=== PATIENT | male | born 1950 | race Caucasian/White ===

== ENCOUNTER 2017-09-12 07:44 | Outpatient (CLI) | payer OTHER ==
[~2017-09-12 07:44] MED LIST: CATAFLAM50 MG; CATAFLAM50 MG PO; COZAAR100 MG; METFORMIN HCL500 MG; NORVASC10 MG; ORPH100T; ORPH100T PO; ZETIA10 MG; ZITHROMAX TRI-500 MG PO; ZOCOR40 MG
== END 2017-09-12 07:47 | disposition home or self-care (01) ==
LOC: NUCLEAR 07:44
DX: I11.9 Hypertensive heart disease without heart failure (principal); R07.89 Other chest pain; E11.9 Type 2 diabetes mellitus without complications; I25.10 Atherosclerotic heart disease of native coronary artery without angina pectoris
CPT/HCPCS: 78452; 93017; A9500; J0153

== ENCOUNTER 2018-07-22 10:50 | Emergency (ER) | payer OTHER ==
[~2018-07-22] VITALS: Ht 182.9 cm; Wt 88.5 kg
== END 2018-07-22 14:17 | disposition home or self-care (01) ==
LOC: ER 10:50
DX: R42 Dizziness and giddiness (principal); M54.2 Cervicalgia; F06.4 Anxiety disorder due to known physiological condition

== ENCOUNTER 2018-11-03 07:23 | Outpatient (CLI) | payer OTHER | END 2018-11-03 07:25 | disposition home or self-care (01) | LOC: SONOGRAMA 07:23 → MAMO-SONO 07:45 | DX: K28.1 Acute gastrojejunal ulcer with perforation (principal) ==

== ENCOUNTER 2018-11-09 17:26 | Emergency (ER) | payer OTHER ==
[~2018-11-09] VITALS: Ht 172.7 cm; Wt 91.2 kg
== END 2018-11-09 21:45 | disposition home or self-care (01) ==
LOC: ER 17:26
DX: R07.89 Other chest pain (principal); F41.8 Other specified anxiety disorders

== ENCOUNTER 2019-03-27 09:22 | Emergency (ER) | payer OTHER ==
[~2019-03-27] VITALS: Ht 172.7 cm; Wt 94.3 kg
[2019-03-27] MEDS ORDERED: FISH OIL CONC1000 MG (09:43)
[2019-03-27] MEDS ORDERED: ZOLOFT50 MG (09:43)
[2019-03-27] MEDS ORDERED: XANAX0.25 MG (09:43)
== END 2019-03-27 18:36 | disposition home or self-care (01) ==
LOC: ER 09:22
DX: R42 Dizziness and giddiness (principal); T43.225A Adverse effect of selective serotonin reuptake inhibitors, initial encounter; Y92.89 Other specified places as the place of occurrence of the external cause

== ENCOUNTER 2019-05-18 08:18 | Emergency (ER) | payer OTHER ==
[~2019-05-18] VITALS: Ht 172.7 cm; Wt 95.3 kg
[~2019-05-18 08:18] MED LIST changes: +FISH OIL CONC1000 MG; +XANAX0.25 MG; +ZOLOFT50 MG
== END 2019-05-18 15:52 | disposition home or self-care (01) ==
LOC: ER 08:18 → CPU-OBS 09:02 → ER 09:02
DX: M94.0 Chondrocostal junction syndrome [Tietze] (principal); I16.0 Hypertensive urgency; I10 Essential (primary) hypertension; R07.89 Other chest pain; R42 Dizziness and giddiness; F40.01 Agoraphobia with panic disorder

== ENCOUNTER 2020-09-27 13:05 | Emergency (ER) | payer OTHER ==
[~2020-09-27] VITALS: Ht 175.3 cm; Wt 103.0 kg
[2020-09-27] MEDS ORDERED: BUPROPION HCL200 M1 (13:14)
[2020-09-27] MEDS ORDERED: LIPITOR40 M1 (13:15)
[2020-09-27] MEDS ORDERED: ZITHROMAX500 MG PO (16:30)
[2020-09-27] MEDS ORDERED: TUSSI PRES-B L480 ML PO (16:30)
[2020-09-27] MEDS ORDERED: TESSALON PERLE100 M1 PO (16:30)
== END 2020-09-27 16:42 | disposition home or self-care (01) ==
LOC: ER 13:05
DX: B34.9 Viral infection, unspecified (principal); R05 Cough; Z03.818 Encounter for observation for suspected exposure to other biological agents ruled out

== ENCOUNTER → 2020-12-07 11:07 | Outpatient (CLI) | payer OTHER ==
[~2020-12-07 11:07] MED LIST changes: +BUPROPION HCL200 M1; +LIPITOR40 M1; +TESSALON PERLE100 M1 PO; +TUSSI PRES-B L480 ML PO; +ZITHROMAX500 MG PO
== END | disposition home or self-care (01) ==
LOC: LAB 11:07
PROVIDERS: ATTEND Urology
DX: R97.20 Elevated prostate specific antigen [PSA] (principal)

== ENCOUNTER 2020-12-29 07:11 | Outpatient (CLI) | payer OTHER | END 2020-12-29 07:19 | disposition home or self-care (01) | LOC: SONOGRAMA 07:11 | PROVIDERS: ATTEND Urology | DX: C61 Malignant neoplasm of prostate (principal); D29.1 Benign neoplasm of prostate; R97.20 Elevated prostate specific antigen [PSA] ==

== ENCOUNTER 2021-01-16 07:07 | Outpatient (CLI) | payer OTHER | END 2021-01-16 07:12 | disposition home or self-care (01) | LOC: TOM 07:07 | PROVIDERS: ATTEND Urology | DX: C61 Malignant neoplasm of prostate (principal) ==

== ENCOUNTER 2021-02-23 07:37 | Outpatient (CLI) | payer OTHER | END 2021-02-23 07:47 | disposition home or self-care (01) | LOC: TOM 07:37 | PROVIDERS: ATTEND Urology | DX: C61 Malignant neoplasm of prostate (principal) | CPT/HCPCS: 74177; Q9965 ==

== ENCOUNTER 2021-02-28 08:31 | Outpatient (CLI) | payer OTHER | END 2021-02-28 08:33 | disposition home or self-care (01) | LOC: NUCLEAR 08:31 | PROVIDERS: ATTEND Urology | DX: C61 Malignant neoplasm of prostate (principal) | CPT/HCPCS: 78803; A9503 ==

== ENCOUNTER 2021-05-12 22:51 | Emergency (ER) | payer OTHER ==
[~2021-05-12] VITALS: Ht 175.3 cm; Wt 97.1 kg
[2021-05-12] MEDS ORDERED: TOPROL XL50 M1 (23:21)
[2021-05-12] MEDS ORDERED: BUPROPION XL450 MG (23:21)
[2021-05-12] MEDS ORDERED: NEURONTIN300 MG (23:22)
== END 2021-05-13 02:36 | disposition home or self-care (01) ==
LOC: ER 22:51
DX: R53.1 Weakness (principal); R50.9 Fever, unspecified; Z03.818 Encounter for observation for suspected exposure to other biological agents ruled out

== ENCOUNTER 2021-10-22 18:34 | Inpatient (IN) | payer OTHER ==
[~2021-10-22] VITALS: Ht 175.3 cm; Wt 95.3 kg
[~2021-10-22 18:34] MED LIST changes: +BUPROPION XL450 MG; +NEURONTIN300 MG; +TOPROL XL50 M1
--- NOTE | 2021-10-22 19:07 | NUR ---
PTE ALERTA Y ORIENTADO X 3 ESFERAS QUIEN REFIERE DESDE ESTA MANANA DOLOR ABDMONIAL QUE COMENZO EN CUADRANTE RT Y SE IRRADIA AL BENI DEL ESTOMAGO Y AREA SUPRAPUBICA,REFIERE FIEBRE.AL MOMENTO PTE AFEBRIL.
[2021-10-22] MEDS ORDERED: OMEGA 3 1,0001 EACH (19:09)
[2021-10-22] MEDS ORDERED: TRELSTAR3.75 M1 (19:10)
--- NOTE | 2021-10-22 22:51 | NUR ---
SE ORIENTA PTE SOBRE TX MEDICO EL CUAL REFIERE ENTENDER.SE LE EXTRAEN MUESTRAS BAJO MEDIDAS ASEPTICAS,SE CANALIZA Y SE ADMINISTRAN MEDICAMENTOS,SE NOTIFICA CT.
--- NOTE | 2021-10-23 | NUR ---
SE RECIBE PACIENTE DE TURNO ANTERIOR, ALERTA Y ORIENTADO EN TIEMPO LUGAR Y PERSONA. UBICADO EN SOBEIDA CON BARANDAS ELEVADAS Y FRENOS AJUSTADOS POR SEGURIDAD. CON VENOPUNCION PATENTE, DORIS DE ERITEMA Y EDEMA, RECIBIENDO AL MOMENTO TERAPIA DE IVF'S. PENDIENTE LECTURA DE CT. SE MANTIENE EN OBSERVACION POR CAMBIOS.
--- NOTE | 2021-10-23 07:35 | NUR ---
SE RECIBE PACIENTE MASCULINO DE 71 ANOS DE EDAD DESPIERTO Y ALERTA EN SOBEIDA CON BARANDAS ELEVADAS EN POSICION SEMI SENTADO. AREA DE VENOPUNCION PATENTE DORIS DE EDEMAS, ENROJECIMIENTO Y DOLOR AL TACTO. PACIENTE PENDIENTE A CONSULTA CON DR. MORALES
[2021-10-23] MEDS ORDERED: AMLODIPINE BESYL5 MG (14:10)
[2021-10-23] MEDS ORDERED: OMEGA-31000 MG (14:10)
[2021-10-23] MEDS ORDERED: FAMOTIDINE20 MG (14:10)
== END 2021-11-15 18:03 | disposition home or self-care (01) | DRG 391 ==
LOC: ER 18:34 → SEC-K 10-23 10:02 → SURG 10-23 10:02 → O/R 10-23 13:07 → SEC-K 10-23 13:09 → SURG 10-23 16:13 → SURH 11-02 13:35
PROVIDERS: ADMIT Specialist; ATTEND Specialist
PROC: 02HV33Z Insertion of Infusion Device into Superior Vena Cava, Percutaneous Approach (ICD-10-PCS; 2021-10-23)
PROC: 0W9J30Z Drainage of Pelvic Cavity with Drainage Device, Percutaneous Approach (ICD-10-PCS; principal; 2021-10-25)
PROC: BW21YZZ Computerized Tomography (CT Scan) of Abdomen and Pelvis using Other Contrast (ICD-10-PCS; 2021-11-05)
PROC: BW21YZZ Computerized Tomography (CT Scan) of Abdomen and Pelvis using Other Contrast (ICD-10-PCS; 2021-11-13)
DX: K57.20 Diverticulitis of large intestine with perforation and abscess without bleeding (principal); K65.1 Peritoneal abscess; R10.31 Right lower quadrant pain; K59.09 Other constipation; I10 Essential (primary) hypertension; C61 Malignant neoplasm of prostate; E11.9 Type 2 diabetes mellitus without complications; Z79.4 Long term (current) use of insulin; B96.29 Other Escherichia coli [E. coli] as the cause of diseases classified elsewhere; B95.2 Enterococcus as the cause of diseases classified elsewhere; B96.89 Other specified bacterial agents as the cause of diseases classified elsewhere

== ENCOUNTER 2021-11-17 11:09 | Emergency (ER) | payer OTHER ==
[~2021-11-17] VITALS: Ht 175.3 cm; Wt 89.8 kg
[~2021-11-17 11:09] MED LIST changes: +AMLODIPINE BESYL5 MG; +FAMOTIDINE20 MG; +OMEGA 3 1,0001 EACH; +OMEGA-31000 MG; +TRELSTAR3.75 M1
== END 2021-11-17 12:01 | disposition home or self-care (01) ==
LOC: ER 11:09
DX: K65.1 Peritoneal abscess (principal); I10 Essential (primary) hypertension; E11.9 Type 2 diabetes mellitus without complications; Z79.84 Long term (current) use of oral hypoglycemic drugs

== ENCOUNTER 2021-11-19 06:49 | Emergency (ER) | payer OTHER ==
[~2021-11-19] VITALS: Ht 175.3 cm; Wt 89.8 kg
[2021-11-19] MEDS ORDERED: NORVASC5 MG PO (07:08)
== END 2021-11-19 09:20 | disposition home or self-care (01) ==
LOC: ER 06:49
DX: R10.11 Right upper quadrant pain (principal); T81.89XA Other complications of procedures, not elsewhere classified, initial encounter

== ENCOUNTER 2021-11-20 16:53 | Emergency (ER) | payer OTHER ==
[~2021-11-20] VITALS: Ht 175.3 cm; Wt 89.8 kg
[~2021-11-20 16:53] MED LIST changes: +NORVASC5 MG PO
== END 2021-11-20 20:28 | disposition home or self-care (01) ==
LOC: ER 16:53
DX: T81.41XA Infection following a procedure, superficial incisional surgical site, initial encounter (principal); L03.311 Cellulitis of abdominal wall

== ENCOUNTER 2021-11-28 11:25 | Emergency (ER) | payer OTHER ==
[~2021-11-28] VITALS: Ht 175.3 cm; Wt 83.9 kg
== END 2021-11-28 16:53 | disposition home or self-care (01) ==
LOC: ER 11:25
DX: R10.9 Unspecified abdominal pain (principal); T85.638A Leakage of other specified internal prosthetic devices, implants and grafts, initial encounter; K65.1 Peritoneal abscess

== ENCOUNTER 2022-01-15 07:27 | Outpatient (CLI) | payer OTHER | END 2022-01-15 07:30 | disposition home or self-care (01) | LOC: RAD 07:27 | PROVIDERS: ATTEND Surgery | DX: K57.20 Diverticulitis of large intestine with perforation and abscess without bleeding (principal); K65.1 Peritoneal abscess; R10.9 Unspecified abdominal pain; K63.5 Polyp of colon; K64.8 Other hemorrhoids ==

== ENCOUNTER 2022-01-21 08:45 | Inpatient (IN) | payer OTHER ==
[~2022-01-21] VITALS: Ht 175.3 cm; Wt 88.5 kg
[2022-01-21] MEDS ORDERED: OMEGA-3 1,0001 EACH PO (10:07)
[2022-01-21] MEDS ORDERED: [UNRECOGNIZED DRUG - CODE] IM (10:08)
[2022-01-21] MEDS ORDERED: GRALISE600 MG PO (10:08)
[2022-01-28] MEDS ORDERED: TRELSTAR3.75 M1 (08:48)
[2022-01-30] MEDS ORDERED: PERCOCET 5-3251 EACH PO (14:17)
== END 2022-01-30 15:33 | disposition home or self-care (01) | DRG 329 ==
LOC: ADM 08:45 → EDSTATUS 08:45 → O/R 01-25 05:28 → SURG 01-25 08:45 → SURH 01-25 14:10
PROVIDERS: ADMIT Surgery; ATTEND Surgery
PROC: 0DBP4ZZ Excision of Rectum, Percutaneous Endoscopic Approach (ICD-10-PCS; 2022-01-25)
PROC: 0DT84ZZ Resection of Small Intestine, Percutaneous Endoscopic Approach (ICD-10-PCS; 2022-01-25)
PROC: 0DJD8ZZ Inspection of Lower Intestinal Tract, Via Natural or Artificial Opening Endoscopic (ICD-10-PCS; 2022-01-25)
PROC: 0DTN4ZZ Resection of Sigmoid Colon, Percutaneous Endoscopic Approach (ICD-10-PCS; principal; 2022-01-25 12:30)
DX: K57.20 Diverticulitis of large intestine with perforation and abscess without bleeding (principal); K65.1 Peritoneal abscess; K63.2 Fistula of intestine; N17.8 Other acute kidney failure; R10.9 Unspecified abdominal pain; K63.5 Polyp of colon; K64.8 Other hemorrhoids; Z20.822 Contact with and (suspected) exposure to COVID-19; I10 Essential (primary) hypertension

== ENCOUNTER 2022-08-26 07:42 | Outpatient (CLI) | payer OTHER ==
[~2022-08-26 07:42] MED LIST changes: +GRALISE600 MG PO; +OMEGA-3 1,0001 EACH PO; +PERCOCET 5-3251 EACH PO; +[UNRECOGNIZED DRUG - CODE] IM
== END 2022-08-26 07:47 | disposition home or self-care (01) ==
LOC: RAD 07:42
PROVIDERS: ATTEND Specialist
DX: I70.0 Atherosclerosis of aorta (principal)

== ENCOUNTER 2023-07-16 07:18 | Outpatient (CLI) | payer OTHER | END 2023-07-16 07:24 | disposition home or self-care (01) | LOC: RAD 07:18 | PROVIDERS: ATTEND Specialist | DX: M47.812 Spondylosis without myelopathy or radiculopathy, cervical region (principal) ==

== ENCOUNTER → 2024-09-02 07:47 | Outpatient (CLI) | payer OTHER | END | disposition home or self-care (01) | LOC: NUCLEAR 06:15 | PROVIDERS: ATTEND Specialist | DX: M35.3 Polymyalgia rheumatica (principal) | CPT/HCPCS: 78306; A9503 ==

== ENCOUNTER 2025-01-19 11:55 | Emergency (ER) | payer OTHER ==
[~2025-01-19] VITALS: Ht 175.3 cm; Wt 93.0 kg
[2025-01-19] MEDS ORDERED: TRAMADOL HCL 50 MG TABLET PO STA (14:07)
[2025-01-19] MEDS ORDERED: KETOROLAC TROMETHAMINE 30 MG VIAL IV STA (14:07)
[2025-01-19 14:35] LABS: URINE APPEARANCE Clear; URINE BILIRRUBIN Negative (NEGATIVE); URINE BLOOD Negative; URINE COLOR Yellow; URINE GLUCOSE Negative (NEGATIVE); URINE KETONE Trace (NEGATIVE); URINE LEUKOCYTE Negative; URINE NITRATE Negative; URINE PROTEIN Negative (NEGATIVE); URINE UROBILINOGEN 1.0 E.U./dl
[2025-01-19 14:39] LABS: URINE BACTERIA 21.5 uL (0.0-1933); URINE EPITHELIAL CELLS 8.7 uL (0.0-38.8); URINE WBC 3.9 uL (0.0-23.2)
[2025-01-19 14:56] LABS: URINE CAST 0.14 uL (0.0-1.40); URINE RBC 1.6 uL (0.0-20.8)
[2025-01-19 15:06] LABS: BASO % 0.8 % (0.1-1.2); EOS # 0.32 (0.04-0.54); EOS % 3.4 % (0.7-7.0); LYMPH # 2.07 (1.18-3.74); LYMPH % 21.9 % (19.3-53.1); MEAN PLATELET VOLUME 10.50 fl (9.4-12.4); MONO # 0.72 (0.24-0.82); MONO % 7.6 % (4.7-12.5); NEUT # 6.25 (1.56-6.13); NEUT % 66.1 % (34.0-71.1); RED CELL DISTRIBUTION WIDTH 13.2 % (11.6-14.4)
[2025-01-19 15:23] LABS: BUN CREA RATIO 15.0 (7.0-25.0); CREATININE SERUM 1.0 mg/dL (0.70-1.30); GFR 73.45; GLUCOSE FASTING 114.0 mg/dL (65-100); OSMOLALITY SERUM 287.0 MOSM/KG (275-295)
== END 2025-01-19 16:34 | disposition home or self-care (01) ==
LOC: ER 11:55
DX: R30.0 Dysuria (principal); R10.2 Pelvic and perineal pain; I10 Essential (primary) hypertension
CPT/HCPCS: 36415; 74176; 96365; 99284; J1885

== ENCOUNTER 2025-03-09 14:46 | Emergency (ER) | payer OTHER ==
[~2025-03-09] VITALS: Ht 175.3 cm; Wt 89.8 kg
[2025-03-09 16:51] VITALS: BP 154/80; O2SAT 97
[2025-03-09] MEDS ORDERED: KETOROLAC TROMETHAMINE 30 MG VIAL IV ONE (17:15)
[2025-03-09] MEDS ORDERED: FAMOTIDINE/PF 20 MG/2 ML VIAL IV ONE (17:15)
[2025-03-09] MEDS ORDERED: 0.9 % SODIUM CHLORIDE 500 ML IV ONE (17:15)
[2025-03-09] MEDS ORDERED: FAMOTIDINE/PF 20 MG/2 ML VIAL ONE (17:24)
[2025-03-09] MEDS ORDERED: KETOROLAC TROMETHAMINE 30 MG VIAL ONE (17:24)
[2025-03-09 17:57] LABS: BASO % 0.9 % (0.1-1.2); EOS # 0.35 (0.04-0.54); EOS % 4.4 % (0.7-7.0); LYMPH # 2.02 (1.18-3.74); LYMPH % 25.4 % (19.3-53.1); MEAN PLATELET VOLUME 9.90 fl (9.4-12.4); MONO # 0.64 (0.24-0.82); MONO % 8.1 % (4.7-12.5); NEUT # 4.85 (1.56-6.13); NEUT % 61.1 % (34.0-71.1); RED CELL DISTRIBUTION WIDTH 12.9 % (11.6-14.4)
[2025-03-09 18:29] LABS: INR 1.0
[2025-03-09 18:41] LABS: ALT/SGPT 33.0 U/L (12-78); AST/SGOT 18.0 U/L (15-37); BILIRUBIN TOTAL 0.61 mg/dL (0.3-1.2); BUN CREA RATIO 11.0 (7.0-25.0); CREATININE SERUM 1.07 mg/dL (0.70-1.30); GFR 67.74; GLOBULINA 3.3 G/DL (2.4-3.5); GLUCOSE FASTING 117.0 mg/dL (65-100); OSMOLALITY SERUM 280.0 MOSM/KG (275-295)
[2025-03-09 19:01] LABS: URINE APPEARANCE Clear; URINE BILIRRUBIN Negative (NEGATIVE); URINE BLOOD Negative; URINE COLOR Yellow; URINE GLUCOSE Negative (NEGATIVE); URINE KETONE Trace (NEGATIVE); URINE LEUKOCYTE Negative; URINE NITRATE Negative; URINE PROTEIN Negative (NEGATIVE); URINE UROBILINOGEN 0.2 E.U./dl
[2025-03-09 19:08] LABS: URINE BACTERIA 14.3 uL (0.0-1933); URINE EPITHELIAL CELLS 5.3 uL (0.0-38.8); URINE RBC 2.1 uL (0.0-20.8); URINE WBC 3.3 uL (0.0-23.2)
[2025-03-09 19:10] LABS: URINE CAST 0.00 uL (0.0-1.40)
[2025-03-09] MEDS ORDERED: NORFLEX100MG PO (20:35)
== END 2025-03-09 20:39 ==
LOC: ER 14:46
PROVIDERS: General Practice
DX: K57.90 Diverticulosis of intestine, part unspecified, without perforation or abscess without bleeding (principal); R10.2 Pelvic and perineal pain; I10 Essential (primary) hypertension; E11.69 Type 2 diabetes mellitus with other specified complication; Z79.84 Long term (current) use of oral hypoglycemic drugs
CPT/HCPCS: 36415; 74177; 96365; 96366; 99284; J1885; J3490; J7042; Q9965

== ENCOUNTER 2025-06-03 12:21 | Emergency (ER) | payer OTHER ==
[~2025-06-03] VITALS: Ht 175.3 cm; Wt 88.0 kg
[~2025-06-03 12:21] MED LIST changes: +NORFLEX100MG PO
[2025-06-03] MEDS ORDERED: FENOFIBRATE48 MG PO (13:49)
[2025-06-03] MEDS ORDERED: NABUMETONE500 MG PO (13:50)
[2025-06-03] MEDS ORDERED: NEURONTIN600 M1 PO (13:50)
[2025-06-03] MEDS ORDERED: NASAL MIST126 ML (13:50)
[2025-06-03 17:09] LABS: BASO % 0.7 % (0.1-1.2); EOS # 0.29 (0.04-0.54); EOS % 3.2 % (0.7-7.0); LYMPH # 2.22 (1.18-3.74); LYMPH % 24.7 % (19.3-53.1); MEAN PLATELET VOLUME 9.30 fl (9.4-12.4); MONO # 0.65 (0.24-0.82); MONO % 7.2 % (4.7-12.5); NEUT # 5.73 (1.56-6.13); NEUT % 64.0 % (34.0-71.1); RED CELL DISTRIBUTION WIDTH 12.6 % (11.6-14.4)
[2025-06-03 17:42] LABS: INR 0.99
[2025-06-03 17:47] LABS: ALT/SGPT 26.0 U/L (12-78); AST/SGOT 12.0 U/L (15-37); BILIRUBIN TOTAL 0.68 mg/dL (0.3-1.2); BUN CREA RATIO 18.0 (7.0-25.0); CREATININE SERUM 0.97 mg/dL (0.70-1.30); GFR 75.86; GLOBULINA 2.8 G/DL (2.4-3.5); GLUCOSE FASTING 124.0 mg/dL (65-100); OSMOLALITY SERUM 288.0 MOSM/KG (275-295)
[2025-06-03] MEDS ORDERED: ORPHENADRINE CITRATE 30 MG/ML AMPUL IM ONE (19:00)
== END 2025-06-03 19:29 | disposition home or self-care (01) ==
LOC: ER 12:22
PROVIDERS: General Practice
DX: R07.89 Other chest pain (principal); E11.9 Type 2 diabetes mellitus without complications; Z79.84 Long term (current) use of oral hypoglycemic drugs; I10 Essential (primary) hypertension
CPT/HCPCS: 36415; 71046; 93005; 96372; 99283; J2360